=== PATIENT | female | born 1965 | race Caucasian/White ===

== ENCOUNTER 2025-01-17 08:39 | Outpatient (AMB) | payer OTHER, SELFPAY ==
--- NOTE | 2025-01-17 08:47 | MHC.OFFVIS ---
Vital Signs 01/17/25 08:49 Height 5 ft 2 in Weight 170 lb BMI 31.1 Intake Visit Reasons: Left knee pain and giving way Intake Note: Abbie is a 59 year old female who presents with complaints of progressively worsening left knee pain and giving way. The patient states that her symptoms began approximately 1 year ago. She twisted her knee while walking and had acute onset of pain. Most of the pain is along the anterior and medial aspects of her knee. She has failed the last 6 weeks of conservative treatment which has included Tylenol, a home exercise program and physical therapy exercises. The patient has been told by her oncologist that she should not take ibuprofen. She was diagnosed with breast cancer in 2022. Allergies clindamycin Allergy (Intermediate, Verified 01/17/25 08:52) Hives Sulfa (Sulfonamide Antibiotics) Allergy (Intermediate, Verified 01/17/25 08:52) Hives penicillin G Allergy (Unknown, Verified 01/17/25 08:52) Unknown Medication List - Last Reconciled 01/17/25 by Gurjit Vargas MD anastrozole 1 mg PO DAILY citalopram 10 mg PO DAILY citalopram 20 mg PO DAILY ribociclib (Kisqali) mg PO trazodone 150 mg PO BEDTIME Physical Exam Vital Signs: BMI result Body Mass Index 31.1 Const Other: Well-nourished well-developed very friendly female awake alert and oriented x3 in no acute distress Extrem Other: Left knee examination shows a minimal effusion, mild crepitus with range of motion, tenderness along her medial joint line, positive Veronica's test, no instability Results Reviewed Results Reviewed: Standing full weight-bearing x-rays of the patient's left knee show mild diffuse joint space narrowing, no acute bony abnormalities Assessment & Plan Assessment & Plan (1) Tear of medial meniscus of left knee: Code(s): S83.242A - Other tear of medial meniscus, current injury, left knee, initial encounter Category: Medical Plan Ms. Swain presents with left knee pain and mechanical symptoms most likely due to a medial meniscus tear. Thus, I will send the patient for an MRI of her left knee for further evaluation. I will see her back once the MRI is completed to discuss the findings and treatment options. Feel free to call me at any time should questions regarding her orthopedic management arise. I spent 22 minutes in reviewing the patient's records and imaging studies, seeing the patient and documenting in the medical record. Orders: Orders MR knee LT wo con Today S83.242A - Other tear of medial meniscus, current injury, left knee, initial encounter XR knee LT 3V Today M25.562 - Pain in left knee Coding Level of Care Code New Pt Level 3 (69913) Complex EM visit Add On G2211 Diagnoses Tear of medial meniscus of left knee S83.242A
[2025-01-17 08:49] VITALS: BMI 31.1
--- OUTSIDE RECORDS SUMMARY | 2025-01-17 09:08 | XMS_ITS | Clinical Summary ---
Author Organization [facility] Address [address] [place] [address] Care Team Providers Care Founding Partner Name Role Phone Abdoul Moise MD Primary Care Provider +1- [phone] Allergies Active Allergy Reactions Criticality Noted Date Comments Clindamycin 02/05/2014 Penicillins 02/05/2014 Sulfa Antibiotics 02/05/2014 Medications Medication Sig Dispensed Refills Start Date End Date Status Omeprazole 20 MG TBEC Take 1 tablet by mouth. 0 Active LORazepam (Ativan) 1 MG tablet Take 1 tab 1 hour prior to MRI study. Must have somebody bring you to and from imaging exam. 1 tablet 0 10/23/2020 Active HYDROcodone-acetamin ophen (NORCO) 5-325 MG per tablet Take 1-2 tabs every 4 hours as needed for pain following your left shoulder surgery 50 tablet 0 11/07/2020 Active Active Problems Problem Noted Date Diagnosed Date Shoulder stiffness, left 03/19/2021 Subacromial bursitis of left shoulder joint 06/26 Impingement syndrome of left shoulder 07/24/2020 Family History Medical History Relation Name Comments Cancer Mother Hypertension Mother Cancer Sister Relation Name Status Comments Mother Sister Social History Tobacco Use Types Packs/Day Years Used Date Smoking Tobacco: Never Assessed Sex and Gender Information Value Date Recorded Sex Assigned at Not on file Gender Identity Not on file Sexual Orientation Not on file Job Start Date Occupation Industry Not on file Not on file Not on file Last Filed Vital Signs Vital Sign Reading Time Taken Comments Blood Pressure - - Pulse - - Temperature - - Respiratory Rate - - Oxygen Saturation - - Inhaled Oxygen Concentration - - Weight 83.9 kg (185 lb) 10/21/2020 2:27 PM EDT Height 157.5 cm (5' 2 ) 10/21/2020 2:27 PM EDT Body Mass Index 33.84 10/21/2020 2:27 PM EDT Plan of Treatment Health Maintenance Due Date Last Done Comments Hepatitis B Vaccines (1 of 3 - 3-dose series) 1966 Hepatitis C Screening 1966 Depression Screening 1978 BMI Counseling 02/12/1984 Preventative Health Evaluation 02/12/1984 Cervical Cancer Screening (Pap Smear) 1987 Colon Cancer Screening (Colonoscopy) 2011 Breast Cancer Screening (Mammogram) 02/12/2016 Shingrix-Zoster Vaccine (1 of 2) 02/12/2016 DTap / Tdap / Td (3 - Td or Tdap) 02/06/2024 02/05/2014, 12/17/2011 COVID-19 Vaccine ( season) 2024 09/19/2020, 09/01/2020 Influenza Vaccine (Season Ended) 2025 05/21/2022, 05/21/2022, 05/12/2021, Additional history exists Pneumococcal Vaccine Aged Out No long er eligible based on patient's age to complete this topic RSV Ped < 20 months Aged Out No longe r eligible based on patient's age to complete this topic Insurance Payer Benefit Plan / Group Subscriber ID Effective Dates Phone Address [facility] [id number] 2018-Present [address] [address] [facility] [id number] 2019-Present [address] [address] [facility] Care Teams Founding Partner Relationship Specialty Start Date End Date Abdoul Moise MD [address] [place] [address] PCP - General Internal Medicine 07/09/20
== END 2025-01-17 09:19 | disposition home or self-care (01) ==
LOC: HO.HOS 08:39
PROVIDERS: Visit Provider Orthopaedic Surgery
DX: S83.242A Other tear of medial meniscus, current injury, left knee, initial encounter (principal)
CPT/HCPCS: 99203; G2211

== ENCOUNTER → 2025-01-17 08:41 | Outpatient (BNV) | payer OTHER, SELFPAY | PROVIDERS: Visit Provider Radiology Diagnostic Radiology | DX: M25.462 Effusion, left knee (principal) | CPT/HCPCS: 73562 ==

== ENCOUNTER 2025-01-17 09:17 | Outpatient (REF) | payer OTHER, SELFPAY ==
--- NOTE | ~2025-01-17 | XR_ITS ---
EXAMINATION: XR KNEE 3 VIEWS LEFT HISTORY: M25.562 - Pain in left knee COMPARISON: There are no prior studies available for comparison. FINDINGS: Three views of the left knee are submitted. Osseous mineralization is normal. There is no fracture or dislocation. There is mild degenerative change of the patellofemoral compartment. The soft tissues are unremarkable. There is a small joint effusion. XR/XR knee LT 3V IMPRESSION: Small joint effusion. Degenerative change of both patellofemoral compartment. Electronically signed by: Jewel Andre MD 01/17/2025 09:12 AM EDT
--- OUTSIDE RECORDS SUMMARY | 2025-01-18 09:37 | XMS_ITS | Clinical Summary ---
Author Organization [facility] Address [address] [place] [address] Care Team Providers Care Manager Generation Name Role Phone Abdoul Moise MD Primary Care Provider +1- [phone] Allergies Active Allergy Reactions Criticality Noted Date [...] Group Subscriber ID Effective Dates Phone Address [facility] [id number] 2018-Present [address] [address] [facility] [id number] 2019-Present [address] [address] [facility] Care Teams Manager Generation Relationship Specialty Start Date End Date Abdoul Moise MD [address] [place] [address] PCP - General Internal Medicine 07/09/20
== END 2025-01-17 09:18 | disposition home or self-care (01) ==
LOC: HO.HOSX 09:17
PROVIDERS: Visit Provider Orthopaedic Surgery
DX: M25.562 Pain in left knee (principal); S83.242A Other tear of medial meniscus, current injury, left knee, initial encounter; X50.1XXA Overexertion from prolonged static or awkward postures, initial encounter; Y93.01 Activity, walking, marching and hiking; Y92.9 Unspecified place or not applicable; Y99.9 Unspecified external cause status
CPT/HCPCS: 73562

== ENCOUNTER → 2025-01-27 08:22 | Outpatient (BNV) | payer OTHER, SELFPAY | PROVIDERS: Visit Provider Radiology Diagnostic Radiology | DX: M23.301 Other meniscus derangements, unspecified lateral meniscus, left knee (principal); M25.462 Effusion, left knee; M94.262 Chondromalacia, left knee | CPT/HCPCS: 73721 ==

== ENCOUNTER 2025-01-27 08:25 | Outpatient (REF) | payer OTHER, SELFPAY ==
--- NOTE | ~2025-01-27 | MR_ITS ---
CLINICAL HISTORY: S83.242A - Other tear of medial meniscus, current injury, left knee, ini... MR left knee without contrast Comparison: DX/SR - XR KNEE LT 3V - 01/17/25 08:41 EDT Findings: The medial meniscus is intact. There is a tear of the anterior horn of the lateral meniscus. The anterior and posterior cruciate ligaments are intact. The medial and lateral collateral ligaments are intact. There is periligamentous edema. The extensor mechanism is intact. Large joint effusion. No Cummins's cyst. There is edema in the lateral femoral condyle with overlying full-thickness chondromalacia involving a region measuring up to 8 mm. There is a trace amount of subchondral edema in the lateral tibial plateau with overlying partial-thickness chondromalacia. Bone marrow signal is otherwise normal. Partial-thickness chondromalacia is present in the patellofemoral and medial tibiofemoral compartments, Most prominent in the lateral patellar facet. Impression: Tear of the lateral meniscus. No cruciate or collateral ligament tears. Large joint effusion. 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 Partial-thickness chondromalacia in the lateral tibial plateau with a trace amount of subchondral edema. This document has been electronically signed by: Nicole Raza MD on 01/28/2025 22:06:57
== END 2025-01-27 08:26 | disposition home or self-care (01) ==
LOC: HO.MRI 08:25
PROVIDERS: Visit Provider Orthopaedic Surgery
DX: S83.242A Other tear of medial meniscus, current injury, left knee, initial encounter (principal)
CPT/HCPCS: 73721

== ENCOUNTER 2025-02-12 14:28 | Outpatient (AMB) | payer OTHER, SELFPAY ==
[2025-02-12 14:30] VITALS: BMI 31.1
--- NOTE | 2025-02-12 14:30 | MHC.OFFVIS ---
Vital Signs 02/12/25 14:30 Height 5 ft 2 in Weight 170 lb BMI 31.1 Intake Visit Reasons: OV - LT knee pain, MRI review Intake Note: Abbie is a 60 year old female who presents with complaints of progressively worsening left knee pain and giving way. The patient states that her symptoms began approximately 1 year ago. She twisted her knee while walking and had acute onset of pain. Most of the pain is along the anterior and medial aspects of her knee. She has failed the last 6 weeks of conservative treatment which has included Tylenol, a home exercise program and physical therapy exercises. The patient has been told by her oncologist that she should not take ibuprofen. She was diagnosed with breast cancer in 2022. vitals 131/79 58 heart rate. Allergies clindamycin Allergy (Intermediate, Verified 02/12/25 14:33) Hives Sulfa (Sulfonamide Antibiotics) Allergy (Intermediate, Verified 02/12/25 14:33) Hives penicillin G Allergy (Unknown, Verified 02/12/25 14:33) Unknown Medication List - Last Reconciled 02/12/25 by Gurjit Vargas MD anastrozole 1 mg PO DAILY citalopram 10 mg PO DAILY citalopram 20 mg PO DAILY ribociclib (Kisqali) mg PO trazodone 150 mg PO BEDTIME Physical Exam Vital Signs: BMI result Body Mass Index 31.1 Const Other: Well-nourished well-developed very friendly female awake alert and oriented x3 in no acute distress Extrem Other: Bilateral lower extremity examination shows good capillary refill, no skin lesions noted, normal sensation light touch Left knee examination shows a minimal effusion, mild crepitus with range of motion, tenderness along her lateral joint line, positive Veronica's test, no instability Results Reviewed Results Reviewed: Standing full weight-bearing x-rays of the patient's left knee show mild diffuse joint space narrowing, no acute bony abnormalities MRI of the patient's left knee shows mild diffuse degenerative changes as well as a tear of the lateral meniscus Assessment & Plan Assessment & Plan (1) Tear of lateral meniscus of left knee: Code(s): S83.282A - Other tear of lateral meniscus, current injury, left knee, initial encounter Category: Medical Plan Ms. Swain presents with progressively worsening left knee pain and mechanical symptoms due to a lateral meniscus tear. I had a lengthy discussion with the patient regarding the treatment options. At this point she has failed continued non operative treatments. The risks and benefits of left knee arthroscopic surgery were discussed at length with the patient. The patient wishes to proceed with surgery. Surgery will involve left knee arthroscopic partial lateral meniscectomy. The patient does understand that she may not get 100% relief of her symptoms depending on the severity of her degenerative changes. The patient will be scheduled for next available date. She will follow-up as instructed. Feel free to call me at any time should questions regarding her orthopedic management arise. I spent 21 minutes in reviewing the patient's records and imaging studies, seeing the patient and documenting in the medical record. Coding Level of Care Code Est Pt Level 3 (24681) Complex EM visit Add On G2211 Diagnoses Tear of lateral meniscus of left knee S83.282A
--- OUTSIDE RECORDS SUMMARY | 2025-02-12 15:43 | XMS_ITS | Clinical Summary ---
Author Organization [facility] Address [address] [place] [address] Care Team Providers Care Licensed Staff Mft Name Role Phone Abdoul Moise MD Primary Care Provider +1- [phone] Allergies Active Allergy Reactions Criticality Noted Date [...] ( season) 2024 09/19/2020, 09/01/2020 Influenza Vaccine (#1) 2025 2, 05/21/2022, 05/12/2021, Additional history exists Pneumococcal Vaccine Aged Out No long er eligible based on patient's age to complete this topic RSV Ped < 20 months Aged Out No longe r eligible based on patient's age to complete this topic Insurance Payer Benefit Plan / Group Subscriber ID Effective Dates Phone Address [facility] [id number] 2018-Present [address] [address] [facility] [id number] 2019-Present [address] [address] [facility] Care Teams Licensed Staff Mft Relationship Specialty Start Date End Date Abdoul Moise MD [address] [place] [address] PCP - General Internal Medicine 07/09/20
== END 2025-02-12 14:55 | disposition home or self-care (01) ==
LOC: HO.HOS 14:28
PROVIDERS: Visit Provider Orthopaedic Surgery
DX: S83.282A Other tear of lateral meniscus, current injury, left knee, initial encounter (principal)
CPT/HCPCS: 99213; G2211

== ENCOUNTER 2025-03-01 06:06 | Day surgery (SDC) | payer OTHER, SELFPAY ==
--- OUTSIDE RECORDS SUMMARY | 2025-02-13 12:47 | XMS_ITS | Clinical Summary ---
Author Organization [facility] Address [address] [place] [address] Care Team Providers Care Sanitarian Aide Name Role Phone Abdoul Moise MD Primary Care Provider +1- [phone] Allergies Active Allergy Reactions Criticality Noted Date [...] Group Subscriber ID Effective Dates Phone Address [facility] [id number] 2018-Present [address] [address] [facility] [id number] 2019-Present [address] [address] [facility] Care Teams Sanitarian Aide Relationship Specialty Start Date End Date Abdoul Moise MD [address] [place] [address] PCP - General Internal Medicine 07/09/20
[2025-02-26 11:38] VITALS: BMI 31.1
--- NOTE | 2025-02-27 13:07 | HO.ANESPROP2 ---
Documented by User: Debbie Ospina NP 02/27/25 13:08 HPI - Anesthesia Eval Consult details Narrative: 60yo F for Left Knee Arthroscopy with partial Lateral meniscectomy Hx SVT s/p ablation PMFSH Active Problems Active Problems: All Active Problems Tear of lateral meniscus of left knee (Acute) Tear of medial meniscus of left knee (Acute) Left knee pain (Acute) Past Medical History Medical History SVT (supraventricular tachycardia) Obese Insomnia Esophagitis Colon polyp Depression Back pain Carcinoma of upper-inner quadrant of breast Alcohol abuse Surgical History Surgical History History of cardiac radiofrequency ablation Hx of section Hx of shoulder surgery Social History Social History Patient Tobacco Use Status: Never used Tobacco Use of substances other than those prescribed or required for medical reasons: No Have you been hit, kicked, punched, or otherwise hurt by someone within the past year? If so, by whom?: No Are you DNR?: No Advance Directives: No Advance Directives Information Provided: Yes Patient : No Poor oral hygiene: No Meds Allergies Allergy/AdvReac Type Severity Reaction Status Date / Time clindamycin Allergy Intermediate Hives Verified 02/12/25 14:33 Sulfa (Sulfonamide Allergy Intermediate Hives Verified 02/12/25 14:33 Antibiotics) penicillin G Allergy Unknown Unknown Verified 02/12/25 14:33 Active Medications: Current Medications Vancomycin HCl 1,000 mg/ (Sodium Chloride) 270 mls @ 270 mls/hr IV PREOP ONE Stop: 03/01/25 06:16 Home Medications ?Medication ?Instructions ?Recorded ?Confirmed ?Last Taken ?Type anastrozole 1 mg tablet 1 mg PO DAILY 01/17/25 03/01/25 Unknown History citalopram 10 mg tablet 10 mg PO DAILY 01/17/25 03/01/25 Unknown History citalopram 20 mg tablet 20 mg PO DAILY 01/17/25 03/01/25 Unknown History ribociclib 400 mg/day (200 mg x 2) mg PO 01/17/25 02/12/25 Unknown History tablets (Kisqali) trazodone 150 mg tablet 150 mg PO BEDTIME 01/17/25 03/01/25 Unknown History Exam Height,Weight and Vital Signs: Height 5 ft 2 in Weight 77.111 kg Assessment and Plan Assessment Anesthesia Assessment: Chart Reviewed Documented by User: Stephanie Edmonds MD 03/01/25 07:28 [facility] Past Medical History Medical History SVT (supraventricular tachycardia) Obese Insomnia Esophagitis Colon polyp Depression Back pain Carcinoma of upper-inner quadrant of breast Alcohol abuse Family History Family history of problems with anesthesia: No Surgical History Surgical History History of cardiac radiofrequency ablation Hx of section Hx of shoulder surgery History of Problems with Anesthesia: No Social History Social History Patient Tobacco Use Status: Never used Tobacco Use of substances other than those prescribed or required for medical reasons: No Have you been hit, kicked, punched, or otherwise hurt by someone within the past year? If so, by whom?: No Are you DNR?: No Advance Directives: No Advance Directives Information Provided: Yes Patient : No Poor oral hygiene: No Meds Allergies Allergy/AdvReac Type Severity Reaction Status Date / Time clindamycin Allergy Intermediate Hives Verified 02/12/25 14:33 Sulfa (Sulfonamide Allergy Intermediate Hives Verified 02/12/25 14:33 Antibiotics) penicillin G Allergy Unknown Unknown Verified 02/12/25 14:33 Home Medications ?Medication ?Instructions ?Recorded ?Confirmed ?Last Taken ?Type anastrozole 1 mg tablet 1 mg PO DAILY 01/17/25 03/01/25 Unknown History citalopram 10 mg tablet 10 mg PO DAILY 01/17/25 03/01/25 Unknown History citalopram 20 mg tablet 20 mg PO DAILY 01/17/25 03/01/25 Unknown History ribociclib 400 mg/day (200 mg x 2) mg PO 01/17/25 02/12/25 Unknown History tablets (Kisqali) trazodone 150 mg tablet 150 mg PO BEDTIME 01/17/25 03/01/25 Unknown History Exam Airway Mallampati Class: II TM Dist: >3cm Neck ROM: Full Heart: rrr Lungs: cta Assessment and Plan Assessment Anesthesia Assessment: Anesthesia Plan Discussed Final Anesthetic Review Family History of Problems with Anesthesia: No History of Problems with Anesthesia: No NPO: Yes ASA Class: III Final Preanesthetic Review: No Changes in Pt Med Stat, Meds/Allgs Chart Reviewed, Consent Obtained/Reviewed and Anes Risks/Benef Reviewed Patient Risk: Intermediate Procedure Risk: Low Anesthetic Plan Anesthetic Plan: GA Disposition: Standard PACU
[2025-03-01] VITALS (9 sets, daily range): BP systolic 130–155; BP diastolic 69–85; PULSE 58–90; RESP 8–16; TEMP 36.1–36.6; O2SAT 94–100; BMI 31.4
[2025-03-01] MEDS: Lactated Ringers 1,000 ML 100 ML IVCONT (06:47)
--- NOTE | 2025-03-01 08:48 | PM.OP ---
Brief Operative Note Date of Service: 03/01/25 Pre-op diagnosis: Left knee lateral meniscus tear, left knee degenerative joint disease Post-op diagnosis: same Procedure: Left knee arthroscopic partial lateral meniscectomy, left knee arthroscopic chondroplasty of the undersurface of the patella as well as the medial femoral condyle Implants: none Surgeon: Gurjit Vargas MD Anesthesia: GLMA Was an Work Environment Safety Inspector used for this Procedure?: No Estimated blood loss (mL): 10 Pathology: none sent Condition: stable Disposition: PACU
--- NOTE | 2025-03-01 08:49 | P.OP_ITS ---
Operative Note Operative Note Date of Service: 03/01/25 Narrative: After the patient was identified as Abbie Swain and her left knee was initialed by myself they were brought to the operating room where general anesthesia was induced by the anesthesiologist in routine fashion. Because of the patient's allergy to clindamycin and penicillin she was given 1 g of IV vancomycin preoperatively for infection prophylaxis. The patient's left lower extremity was prepped and draped in sterile fashion. A formal time-out was completed. Marcaine was injected into the planned incision sites as well as the patient's left knee joint. A #11 scalpel blade was used to make an anterolatera l portal 1 cm proximal to the joint line and 1 cm lateral to the patellar tendon. Blunt trocar technique was used to enter the suprapatellar pouch with the knee in extension. Diagnostic arthroscopy showed multiple bands of thickened plica which would be excised at the end of the procedure. There were no loose bodies or abnormalities found in either the medial or lateral gutters. The articular surface of the patella showed diffuse grades 2 and 3 degenerative changes. The trochlear groove articular surface showed diffuse grade 2 degenerative changes. The patient's knee was flexed to 45 degrees and a valgus force was placed upon it. The medial compartment was entered. An anteromedial portal was made 1 cm proximal to the joint line and 1 cm medial to the patellar tendon. Probing of the medial meniscus showed no evidence of medial meniscus tearing. There were diffuse grades 2 and 3 degenerative changes of the medial femoral condyle as well as grade 2 degenerative changes of the medial tibial plateau. The articular surface of the medial femoral condyle was then made smooth using the arthroscopic shaver. The articular surface of the medial tibial plateau was already smooth so no chondroplasty was indicated. The patient's knee was placed into a neutral position. There was no injury to the anterior cruciate ligament. The patient's knee was then placed in the figure of 4 position and the lateral compartment was entered. There was a radial tear of the anterior horn of the lateral meniscus. A partial lateral meniscectomy was performed using the arthroscopic shaver. Following the partial meniscectomy the remainder of the meniscus tissue was stable. There were minimal degenerative changes of the lateral femoral condyle and lateral tibial plateau. The patient's knee was once again brought into extension and the suprapatellar pouch was entered. The arthroscopic shaver and the ArthroCare Wand were used to excise the thickened bands of plica. The undersurface of the patella was then made smooth using the arthroscopic shaver. The articular surface of the trochlear groove was already smooth so no chondroplasty was indicated. The knee joint was irrigated and then drained. All arthroscopic instruments were removed. The 2 portals were closed with 3-0 nylon interrupted suture. The knee joint was injected with Marcaine. Dry sterile dressing and Florin bandages were placed over the patient's knee. The patient was awoken and extubated in the operating room. The patient was transferred to the recovery room in stable condition.
== END 2025-03-01 09:41 | disposition home or self-care (01) ==
PROVIDERS: Visit Provider Orthopaedic Surgery
PROC: (CPT 29870; principal; 2025-03-01 07:30)
DX: S83.282A Other tear of lateral meniscus, current injury, left knee, initial encounter (principal); M17.12 Unilateral primary osteoarthritis, left knee; M25.562 Pain in left knee; M67.52 Plica syndrome, left knee; M23.52 Chronic instability of knee, left knee; X50.1XXA Overexertion from prolonged static or awkward postures, initial encounter; Y93.01 Activity, walking, marching and hiking; Y92.9 Unspecified place or not applicable; Y99.9 Unspecified external cause status; C50.212 Malignant neoplasm of upper-inner quadrant of left female breast; Z79.811 Long term (current) use of aromatase inhibitors; F10.10 Alcohol abuse, uncomplicated; Z88.0 Allergy status to penicillin; Z88.2 Allergy status to sulfonamides; Z79.899 Other long term (current) drug therapy
CPT/HCPCS: 29881; J0131; J0165; J1100; J1885; J2003; J2250; J2405; J2704; J2795; J3010; J3374

== ENCOUNTER → 2025-03-01 06:06 | Outpatient (BNV) | payer OTHER, SELFPAY | PROVIDERS: Visit Provider Orthopaedic Surgery | DX: S83.282A Other tear of lateral meniscus, current injury, left knee, initial encounter (principal) | CPT/HCPCS: 29881 ==

== ENCOUNTER 2025-03-14 09:48 | Outpatient (AMB) | payer OTHER, SELFPAY ==
--- NOTE | 2025-03-14 09:54 | A.OFFVIS_ITS ---
Intake Visit Reasons: PO LT knee 03/01/25 DR Intake Note: Abbie is a 60 year old female who presents post operatively after undergoing a left knee , DOS 03/01/[address] Vargas. Patient reports she is doing well. She is having a sharp jolt of pain between the area where her stitches are. Allergies clindamycin Allergy (Intermediate, Verified 03/14/25 09:59) Hives Sulfa (Sulfonamide Antibiotics) Allergy (Intermediate, Verified 03/14/25 09:59) Hives penicillin G Allergy (Unknown, Verified 03/14/25 09:59) Unknown Medication List - Last Reconciled 03/14/25 by Haseeb Galvan PA-C anastrozole 1 mg PO DAILY citalopram 10 mg PO DAILY citalopram 20 mg PO DAILY oxycodone 5 mg PO Q6H PRN ribociclib (Kisqali) mg PO trazodone 150 mg PO BEDTIME HPI HPI PO LT knee 03/01/25 DR: Details: 60-year-old female returns to the office today status post left knee arthroscopy on 03/01/[address] Vargas. Patient is ambulating with minimal discomfort. She has no concerns today. PFSH Medical History SVT (supraventricular tachycardia) Obese Insomnia Esophagitis Colon polyp Depression Back pain Carcinoma of upper-inner quadrant of breast Alcohol abuse Surgical History History of cardiac radiofrequency ablation Hx of section Hx of shoulder surgery Social History Patient Tobacco Use Status: Never used Tobacco Review of Systems Const All systems reviewed & are unremarkable except as noted in HPI and below Physical Exam Extrem Other: Left knee incisions are clean dry and intact. No erythema. Range of motion 0- 95 degrees. Calf is supple and nontender neurovascularly intact. Results Reviewed Results Reviewed: Brief Operative Note Date of Service: 03/01/25 Pre-op diagnosis: Left knee lateral meniscus tear, left knee degenerative joint disease Post-op diagnosis: same Procedure: Left knee arthroscopic partial lateral meniscectomy, left knee arthroscopic antonia droplasty of the undersurface of the patella as well as the medial femoral condyle Implants: none Surgeon: Gurjit Vargas MD Assessment & Plan Assessment & Plan (1) Tear of medial meniscus of left knee: Code(s): S83.242A - Other tear of medial meniscus, current injury, left knee, initial en counter Category: Medical Plan: Sutures removed today Steri-Strips applied. The patient will begin a course of physical therapy to work on range of motion and strengthening exercises. She will use caution with deep bending twisting pivoting type motions. She will see us back in [address] Vargas, sooner if needed. Orders: Orders PT Evaluation and Treatment Today S83.242A - Other tear of medial meniscus, current injury, left knee, initial encounter Coding Level of Care Code Global (50294) Diagnoses Tear of medial meniscus of left knee S83.242A
--- OUTSIDE RECORDS SUMMARY | 2025-03-14 11:08 | XMS_ITS | Clinical Summary ---
Author Organization [facility] Address [address] [place] [address] Care Team Providers Care Programmer Analyst Consultant Name Role Phone Abdoul Moise MD Primary Care Provider +1- [phone] Allergies Active Allergy Reactions Criticality Noted Date [...] Group Subscriber ID Effective Dates Phone Address [facility] [id number] 2018-Present [address] [address] [facility] [id number] 2019-Present [address] [address] [facility] [place] Care Teams Programmer Analyst Consultant Relationship Specialty Start Date End Date Abdoul Moise MD [address] [place] [address] PCP - General Internal Medicine 07/09/20
== END 2025-03-14 10:11 | disposition home or self-care (01) ==
LOC: HO.HOS 09:49
PROVIDERS: PCP Nurse Practitioner; Visit Provider Physician Assistant
DX: S83.242A Other tear of medial meniscus, current injury, left knee, initial encounter (principal)
CPT/HCPCS: 99024

== ENCOUNTER 2025-04-11 07:55 | Outpatient (AMB) | payer OTHER, SELFPAY ==
--- NOTE | 2025-04-11 07:59 | A.OFFVIS_ITS ---
Intake Visit Reasons: PO: LT knee 03/01/25 Intake Note: Abbie is a 60 year old woman who presents with complaints of mild to moderate discomfort in her left knee after undergoing left knee arthroscopic surgery on 03/01/2025. She does put ice on her knee at times. She continues to be quite active. She denies any fevers or chills. Allergies clindamycin Allergy (Intermediate, Verified 04/11/25 08:02) Hives Sulfa (Sulfonamide Antibiotics) Allergy (Intermediate, Verified 04/11/25 08:02) Hives penicillin G Allergy (Unknown, Verified 04/11/25 08:02) Unknown Medication List - Last Reconciled 04/11/25 by Gurjit Vargas MD anastrozole 1 mg PO DAILY citalopram 10 mg PO DAILY citalopram 20 mg PO DAILY oxycodone 5 mg PO Q6H PRN ribociclib (Kisqali) mg PO trazodone 150 mg PO BEDTIME PFSH Medical History SVT (supraventricular tachycardia) Obese Insomnia Esophagitis Colon polyp Depression Back pain Carcinoma of upper-inner quadrant of breast Alcohol abuse Surgical History History of cardiac radiofrequency ablation Hx of section Hx of shoulder surgery Social History Patient Tobacco Use Status: Never used Tobacco Physical Exam Extrem Other: Left knee examination shows that the surgical incisions are well healed, no erythema, mild discomfort with range of motion, no instability Assessment & Plan Assessment & Plan (1) Left knee pain: Code(s): M25.562 - Pain in left knee Category: Medical Plan Ms. Swain continues to do fairly well after undergoing left knee arthroscopic surgery on 03/01/2025. I discussed with the patient the fact that her symptoms should continue to improve over the next few months. She will continue with her activity modifications. She will contact me prior to her follow-up appointment in 2 months should any questions or concerns arise. Feel free to call me at any time should questions regarding her orthopedic management arise. Coding Level of Care Code Global (56248) Diagnoses Left knee pain M25.562
--- OUTSIDE RECORDS SUMMARY | 2025-04-11 08:00 | XMS_ITS | Clinical Summary ---
Author Organization [facility] Address [address] [place] [address] Care Team Providers Care Certified Coatings Inspector Name Role Phone Abdoul Moise MD Primary Care Provider +1- [phone] Allergies Active Allergy Reactions Criticality Noted Date [...] 02/06/2024 02/05/2014, 12/17/2011 COVID-19 Vaccine ( season) 2025 09/19/2020, 09/01/2020 Influenza Vaccine (#1) 2025 2, 05/21/2022, 05/12/2021, Additional history exists Pneumococcal Vaccine Aged Out No long er eligible based on patient's age to complete this topic RSV Ped < 20 months Aged Out No longe r eligible based on patient's age to complete this topic Insurance Payer Benefit Plan / Group Subscriber ID Effective Dates Phone Address [facility] [id number] 2018-Present [address] [address] [facility] [id number] 2019-Present [address] [address] [facility] [place] Certified Coatings Inspector Relationship Specialty Start Date End Date Abdoul Moise MD [address] [place] [address] PCP - General Internal Medicine 07/09/20
== END 2025-04-11 08:13 | disposition home or self-care (01) ==
LOC: HO.HOS 07:56
PROVIDERS: PCP Nurse Practitioner; Visit Provider Orthopaedic Surgery
DX: M25.562 Pain in left knee (principal)
CPT/HCPCS: 99024

== ENCOUNTER 2025-07-10 13:32 | Outpatient (AMB) | payer OTHER, SELFPAY ==
--- NOTE | 2025-07-10 13:39 | MHC.OFFVIS ---
Intake Visit Reasons: OV: LT knee 03/01/25 DR-2 month follow up Intake Note: Abbie is a 60 year old woman who presents with complaints of intermittent discomfort in her left knee after undergoing left knee arthroscopic surgery on 03/01/2025. She continues with her home stretching program. She does not take any medicines for her discomfort. She denies any fevers or chills. She denies any locking or giving way. Allergies clindamycin Allergy (Intermediate, Verified 07/10/25 13:42) Hives Sulfa (Sulfonamide Antibiotics) Allergy (Intermediate, Verified 07/10/25 13:42) Hives penicillin G Allergy (Unknown, Verified 07/10/25 13:42) Unknown Medication List - Last Reconciled 07/10/25 by Gurjit Vargas MD anastrozole 1 mg PO DAILY citalopram 10 mg PO DAILY citalopram 20 mg PO DAILY hydroxyzine pamoate 25 mg PO TID PRN ribociclib (Kisqali) mg PO trazodone 150 mg PO BEDTIME PFSH Medical History SVT (supraventricular tachycardia) Obese Insomnia Esophagitis Colon polyp Depression Back pain Carcinoma of upper-inner quadrant of breast Alcohol abuse Surgical History (Updated 07/10/25 @ 13:44 by CORONA Penaloza) S/P left knee arthroscopy History of cardiac radiofrequency ablation Hx of section Hx of shoulder surgery Social History Patient Tobacco Use Status: Never used Tobacco Physical Exam Extrem Other: Left knee examination shows that the surgical incisions are well healed, no erythema, minimal discomfort with range of motion, no instability Assessment & Plan Assessment & Plan (1) Left knee pain: Code(s): M25.562 - Pain in left knee Category: Medical Plan Abbie continues to do well after undergoing left knee arthroscopic surgery on March 01, 2025. She will continue with her stretching exercises. She will follow up with me on an as-needed basis should her symptoms worsen in any way. Feel free to call me at any time should questions regarding her orthopedic management arise. I spent 22 minutes in reviewing the patient's records and imaging studies, seeing the patient and documenting in the medical record. Coding Level of Care Code Est Pt Level 3 (63002) Add On Problem Visit Only Diagnoses Left knee pain M25.562
--- OUTSIDE RECORDS SUMMARY | 2025-07-10 17:55 | XMS_ITS | Clinical Summary ---
Author Organization [facility] Prior to 12/22/24 Address [address] [place] [address] Care Team Providers Care Die Set Up Worker Name Role Phone Abdoul Moise MD Primary Care Provider +1- [phone] Allergies Active Allergy Reactions Criticality Noted Date [...] Tdap) 02/06/2024 02/05/2014, 12/17/2011 COVID-19 Vaccine ( - season) 2025 09/19/2020, 09/01/2020 Influenza Vaccine (#1) 2025 2, 05/21/2022, 05/12/2021, Additional history exists Pneumococcal Vaccine Aged Out No long er eligible based on patient's age to complete this topic RSV Ped < 20 months Aged Out No longe r eligible based on patient's age to complete this topic Insurance Payer Benefit Plan / Group Subscriber ID Effective Dates Phone Address [facility] [id number] 2018-Present [address] [address] [facility] [id number] 2019-Present [address] [address] [facility] [place] Care Teams Die Set Up Worker Relationship Specialty Start Date End Date Abdoul Moise MD [address] [place] [address] PCP - General Internal Medicine 07/09/20
== END 2025-07-10 14:06 | disposition home or self-care (01) ==
LOC: HO.HOS 13:33
PROVIDERS: PCP Nurse Practitioner; Visit Provider Orthopaedic Surgery
DX: M25.562 Pain in left knee (principal)
CPT/HCPCS: 99213; G2211